=== PATIENT | female | born 1925 | race Caucasian/White ===

== ENCOUNTER 2016-08-08 19:25 | Inpatient (IN) | payer OTHER, MEDICARE ==
[~2016-08-08] VITALS: Ht 152.4 cm; Wt 49.9 kg
[~2016-08-08 19:25] MED LIST: Ascorbic Acid,Ester- PO; CALCIUM CARBONATE PO; CYANOCOBALAM1000 MCG PO; Coumadin,Jantoven PO; Cozaar PO; Feosol PO; GLUCOSAMINE PO; LASIX20 MG GT; LOTENSIN10 MG PO; Lasix PO; MELOXICAM15 MG PO; MSM PO; NORVASC5 MG PO; Oscal 500 w/Vitamin PO; PRILOSEC20 MG PO; Protonix PO; Senokot S,Pericolace PO; TYLENOL W/COD1 COMBO PO; Tylenol Regular Stre PO; VISION ESSENTIALS PO; Vicodin,Norco 5/325 PO
[2016-08-08 20:50] LABS: EOSINOPHIL (%) 0.3 % (0-5); HEMATOCRIT 30.9 % (36.0-46.0); IMMATURE GRANULOCYTE (%) 0.5 % (0.0-0.7); IMMATURE GRANULOCYTE COUNT 0.1 K/uL; INSTRUMENT ABS NEUTROPHIL CT 9.8 K/uL; LYMPHOCYTE COUNT 0.8 K/uL (1.0-2.8); MCH 28.7 PG (29.0-34.0); MCV 89.6 FL (83-99); MEAN PLAT.VOLUME 10.2 uM^3 (9.5-12.4); MONOCYTE (%) 5.5 % (3-12); MONOCYTE COUNT 0.6 K/uL (0-0.8); NEUTROPHIL (%) 86.1 % (45-76); NEUTROPHIL COUNT 9.8 K/uL (1.8-6.4); PLATELET COUNT 154 K/uL (156-360); RBC DIS.WIDTH-CV 12.8 % (11.8-14.6); RBC DIS.WIDTH-SD 41.9 % (39-53); RED BLOOD COUNT 3.45 M/uL (3.80-5.20); WHITE BLOOD COUNT 11.4 K/uL (4.1-10.2)
[2016-08-08 20:58] LABS: CHLORIDE 119 mEq/L (99-109); POTASSIUM 2.7 mEq/L (3.7-5.4); SODIUM 144 mEq/L (136-147)
[2016-08-08 20:59] LABS: GLUCOSE 85 mg/dL (70-99)
[2016-08-08 21:01] LABS: ANION GAP 7 MEQ/L (2-14)
[2016-08-08 21:03] LABS: GFR ESTIMATE (CALCULATED) > 59 mL/min/
[2016-08-08 21:04] LABS: UREA NITROGEN (BUN) 16 mg/dL (9-23)
[2016-08-09 00:42] LABS: MAGNESIUM 1.4 mg/dL (1.3-2.7)
[2016-08-09 01:17] LABS: ADD MIUA? NO; BILIRUBIN NEGATIVE; BLOOD NEGATIVE; COLOR YELLOW ((YELLOW)); GLUCOSE (STRIP) 50; KETONES NEGATIVE; LEUKOCYTES NEGATIVE; NITRITE NEGATIVE; PROTEIN (STRIP) NEGATIVE; SPECIFIC GRAVITY 1.011 (1.000-1.030); UCUL ADDED? NO; UROBILINOGEN 0.2 MG/DL (0.2-1.0)
[2016-08-09 03:06] VITALS: BP 170/93
[2016-08-09 04:42] VITALS: BP 137/74
[2016-08-09 08:28] VITALS: BP 148/81
[2016-08-09] MEDS ORDERED: LIDODERM 5% P1 PATCH TD (15:14)
[2016-08-09] MEDS ORDERED: LOSARTAN POTASS50 MG PO (15:14)
[2016-08-09] MEDS ORDERED: PROTONIX20 MG PO (15:15)
[2016-08-09 16:00] VITALS: BP 148/79
[2016-08-09 23:34] VITALS: BP 103/55
[2016-08-10] VITALS (8 sets, daily range): BP systolic 89–133; BP diastolic 45–68
[2016-08-10 05:56] LABS: HEMATOCRIT 34.8 % (36.0-46.0); MCH 29.1 PG (29.0-34.0); MCHC 31.3 G/DL (30.0-36.0); MCV 92.8 FL (83-99); PLATELET COUNT 140 K/uL (156-360); RBC DIS.WIDTH-CV 13.3 % (11.8-14.6); RBC DIS.WIDTH-SD 45.5 % (39-53); RED BLOOD COUNT 3.75 M/uL (3.80-5.20); WHITE BLOOD COUNT 11.6 K/uL (4.1-10.2)
[2016-08-10 07:01] LABS: CHLORIDE 109 mEq/L (99-109); SODIUM 140 mEq/L (136-147)
[2016-08-10 07:03] LABS: GLUCOSE 102 mg/dL (70-99)
[2016-08-10 07:05] LABS: ANION GAP 12 MEQ/L (2-14)
[2016-08-10 07:07] LABS: GFR ESTIMATE (CALCULATED) > 59 mL/min/
[2016-08-10 07:08] LABS: UREA NITROGEN (BUN) 12 mg/dL (9-23)
[2016-08-10 07:12] LABS: POTASSIUM 4.4 mEq/L (3.7-5.4)
[2016-08-10 09:00] LABS: METH RESISTANT S AUREUS PCR NEGATIVE (NEGATIVE)
[2016-08-10 09:01] LABS: PROBE CHECK PASS; SPECIMEN PROCESSING CONTROL PASS
[2016-08-11] VITALS (12 sets, daily range): BP systolic 82–165; BP diastolic 46–83
[2016-08-11 06:27] LABS: EOSINOPHIL (%) 0.2 % (0-5); HEMATOCRIT 28.8 % (36.0-46.0); IMMATURE GRANULOCYTE (%) 0.6 % (0.0-0.7); IMMATURE GRANULOCYTE COUNT 0.1 K/uL; INSTRUMENT ABS NEUTROPHIL CT 8.7 K/uL; MCH 29.4 PG (29.0-34.0); MCHC 33.3 G/DL (30.0-36.0); MEAN PLAT.VOLUME 10.5 uM^3 (9.5-12.4); MONOCYTE (%) 9.1 % (3-12); NEUTROPHIL (%) 80.5 % (45-76); NEUTROPHIL COUNT 8.7 K/uL (1.8-6.4); PLATELET COUNT 130 K/uL (156-360); RBC DIS.WIDTH-CV 13.2 % (11.8-14.6); RBC DIS.WIDTH-SD 42.8 % (39-53); RED BLOOD COUNT 3.27 M/uL (3.80-5.20); WHITE BLOOD COUNT 10.8 K/uL (4.1-10.2)
[2016-08-11 06:31] LABS: MCV 88.1 FL (83-99)
[2016-08-11 06:34] LABS: ALKALINE PHOSPHATASE 43 IU/L (3-129); ANION GAP 8 MEQ/L (2-14); CHLORIDE 109 MEQ/L (99-109); GFR ESTIMATE (CALCULATED) > 59 mL/min/; GLUCOSE 98 mg/dL (70-99); POTASSIUM 4.1 MEQ/L (3.7-5.4); SAMPLE HEMOLYSIS CHECK 0; SAMPLE ICTERIC CHECK 0; SAMPLE LIPEMIA CHECK 0; SODIUM 138 MEQ/L (136-147); TOTAL BILIRUBIN 0.7 MG/DL (0.0-1.0); UREA NITROGEN (BUN) 15 mg/dL (9-23)
[2016-08-12 04:12] VITALS: BP 148/88
[2016-08-12 05:51] LABS: EOSINOPHIL (%) 0.5 % (0-5); EOSINOPHIL COUNT 0.1 K/uL (0-0.3); HEMATOCRIT 32.4 % (36.0-46.0); IMMATURE GRANULOCYTE (%) 0.7 % (0.0-0.7); IMMATURE GRANULOCYTE COUNT 0.1 K/uL; INSTRUMENT ABS NEUTROPHIL CT 6.9 K/uL; LYMPHOCYTE COUNT 1.3 K/uL (1.0-2.8); MCH 28.8 PG (29.0-34.0); MCV 87.1 FL (83-99); MEAN PLAT.VOLUME 10.3 uM^3 (9.5-12.4); MONOCYTE (%) 8.5 % (3-12); MONOCYTE COUNT 0.8 K/uL (0-0.8); NEUTROPHIL COUNT 6.9 K/uL (1.8-6.4); PLATELET COUNT 139 K/uL (156-360); RBC DIS.WIDTH-SD 41.7 % (39-53); RED BLOOD COUNT 3.72 M/uL (3.80-5.20); WHITE BLOOD COUNT 9.1 K/uL (4.1-10.2)
[2016-08-12 06:22] LABS: ALKALINE PHOSPHATASE 45 IU/L (3-129); ANION GAP 8 MEQ/L (2-14); CHLORIDE 105 MEQ/L (99-109); GFR ESTIMATE (CALCULATED) > 59 mL/min/; GLUCOSE 93 mg/dL (70-99); POTASSIUM 4.3 MEQ/L (3.7-5.4); SAMPLE HEMOLYSIS CHECK 0; SAMPLE ICTERIC CHECK 0; SAMPLE LIPEMIA CHECK 0; SODIUM 135 MEQ/L (136-147); UREA NITROGEN (BUN) 15 mg/dL (9-23)
[2016-08-12 06:23] LABS: TOTAL BILIRUBIN 0.9 MG/DL (0.0-1.0)
[2016-08-12 08:30] VITALS: BP 170/92
[2016-08-12 12:41] VITALS: BP 143/76
[2016-08-12 15:51] VITALS: BP 114/54
[2016-08-12 19:42] VITALS: BP 135/70
[2016-08-13] VITALS: BP 173/93
[2016-08-13 04:05] VITALS: BP 136/84
[2016-08-13 06:24] LABS: EOSINOPHIL (%) 0.5 % (0-5); EOSINOPHIL COUNT 0.1 K/uL (0-0.3); HEMATOCRIT 33.4 % (36.0-46.0); IMMATURE GRANULOCYTE (%) 0.2 % (0.0-0.7); INSTRUMENT ABS NEUTROPHIL CT 7.8 K/uL; LYMPHOCYTE COUNT 1.2 K/uL (1.0-2.8); MCH 28.4 PG (29.0-34.0); MCHC 32.3 G/DL (30.0-36.0); MCV 87.9 FL (83-99); MEAN PLAT.VOLUME 10.1 uM^3 (9.5-12.4); MONOCYTE COUNT 0.8 K/uL (0-0.8); NEUTROPHIL (%) 78.9 % (45-76); NEUTROPHIL COUNT 7.8 K/uL (1.8-6.4); RBC DIS.WIDTH-CV 13.2 % (11.8-14.6); RBC DIS.WIDTH-SD 42.5 % (39-53); WHITE BLOOD COUNT 9.9 K/uL (4.1-10.2)
[2016-08-13 06:37] LABS: ALKALINE PHOSPHATASE 45 IU/L (3-129); ANION GAP 9 MEQ/L (2-14); CHLORIDE 107 MEQ/L (99-109); GFR ESTIMATE (CALCULATED) > 59 mL/min/; GLUCOSE 111 mg/dL (70-99); POTASSIUM 4.3 MEQ/L (3.7-5.4); SAMPLE HEMOLYSIS CHECK 0; SAMPLE ICTERIC CHECK 0; SAMPLE LIPEMIA CHECK 0; SODIUM 137 MEQ/L (136-147); UREA NITROGEN (BUN) 14 mg/dL (9-23)
[2016-08-13 06:46] LABS: PLATELET COUNT 182 K/uL (156-360)
[2016-08-13 07:54] VITALS: BP 151/87
[2016-08-13 09:05] LABS: HEMATOCRIT 31.1 % (36.0-46.0); MCH 28.4 PG (29.0-34.0); MCHC 32.2 G/DL (30.0-36.0); MCV 88.4 FL (83-99); MEAN PLAT.VOLUME 10.1 uM^3 (9.5-12.4); PLATELET COUNT 180 K/uL (156-360); RBC DIS.WIDTH-CV 13.3 % (11.8-14.6); RBC DIS.WIDTH-SD 43.3 % (39-53); RED BLOOD COUNT 3.52 M/uL (3.80-5.20); WHITE BLOOD COUNT 8.6 K/uL (4.1-10.2)
[2016-08-13 09:34] LABS: ALKALINE PHOSPHATASE 42 IU/L (3-129); ANION GAP 5 MEQ/L (2-14); CHLORIDE 108 MEQ/L (99-109); GFR ESTIMATE (CALCULATED) > 59 mL/min/; GLUCOSE 109 mg/dL (70-99); POTASSIUM 4.6 MEQ/L (3.7-5.4); SAMPLE HEMOLYSIS CHECK 0; SAMPLE ICTERIC CHECK 0; SAMPLE LIPEMIA CHECK 0; SODIUM 137 MEQ/L (136-147); TOTAL BILIRUBIN 0.9 MG/DL (0.0-1.0); UREA NITROGEN (BUN) 13 mg/dL (9-23)
[2016-08-13 09:38] LABS: BASE EXCESS -0.7 mEq/L (-3 to +3); BICARBONATE 23.1 mEq/L (22-26); CARBOXY HGB 2.1 % (0-5); METHEMOGLOBIN 1.1 % (0-1.5); PCO2 34 mm Hg (35-45); PO2 55 mm Hg (80-100); pH 7.44 (7.35-7.45)
[2016-08-13 09:39] LABS: DEVICE NC; O2 FLOW 1 L/MIN; SITE RB; TOTAL RESP RATE 18 resp/min
[2016-08-13 09:39] LABS: D-DIMER ELISA 2.26 mg/L FEU (< 0.57)
[2016-08-13 12:05] VITALS: BP 131/74
[2016-08-13 15:45] LABS: ADD MIUA? YES; BILIRUBIN NEGATIVE; BLOOD LARGE; COLOR YELLOW ((YELLOW)); GLUCOSE (STRIP) NEGATIVE; KETONES NEGATIVE; LEUKOCYTES LARGE; NITRITE POSITIVE; PROTEIN (STRIP) NEGATIVE; SPECIFIC GRAVITY 1.011 (1.000-1.030); UROBILINOGEN 0.2 MG/DL (0.2-1.0)
[2016-08-13 16:28] LABS: BACTERIA RARE /HPF; EPITHELIAL CELLS RARE /HPF; MUCUS TRACE /LPF; WHITE BLOOD CELLS TNTC /HPF (0-5); WHITE BLOOD CELLS CLUMP MANY /HPF (0-5)
[2016-08-13 17:01] VITALS: BP 184/93
[2016-08-13 20:15] VITALS: BP 130/91
[2016-08-14] VITALS (7 sets, daily range): BP systolic 120–169; BP diastolic 62–77
[2016-08-14 06:58] LABS: HEMATOCRIT 32.4 % (36.0-46.0); MCH 28.4 PG (29.0-34.0); MCHC 32.4 G/DL (30.0-36.0); MCV 87.6 FL (83-99); MEAN PLAT.VOLUME 10.1 uM^3 (9.5-12.4); PLATELET COUNT 214 K/uL (156-360); RBC DIS.WIDTH-CV 13.3 % (11.8-14.6); RBC DIS.WIDTH-SD 42.5 % (39-53); WHITE BLOOD COUNT 9.2 K/uL (4.1-10.2)
[2016-08-14 07:26] LABS: ALKALINE PHOSPHATASE 45 IU/L (3-129); ANION GAP 11 MEQ/L (2-14); CHLORIDE 107 MEQ/L (99-109); DIRECT BILIRUBIN 0.2 mg/dL (0.0-0.3); GFR ESTIMATE (CALCULATED) > 59 mL/min/; GLUCOSE 103 mg/dL (70-99); POTASSIUM 4.3 MEQ/L (3.7-5.4); SAMPLE HEMOLYSIS CHECK 0; SAMPLE ICTERIC CHECK 0; SAMPLE LIPEMIA CHECK 0; SODIUM 138 MEQ/L (136-147); TOTAL BILIRUBIN 0.8 MG/DL (0.0-1.0); UREA NITROGEN (BUN) 13 mg/dL (9-23)
[2016-08-15 00:15] VITALS: BP 114/74
[2016-08-15 04:28] VITALS: BP 160/88
[2016-08-15 05:15] LABS: HEMATOCRIT 30.7 % (36.0-46.0); MCH 28.7 PG (29.0-34.0); MCHC 33.2 G/DL (30.0-36.0); MCV 86.2 FL (83-99); MEAN PLAT.VOLUME 9.8 uM^3 (9.5-12.4); PLATELET COUNT 240 K/uL (156-360); RBC DIS.WIDTH-CV 13.2 % (11.8-14.6); RBC DIS.WIDTH-SD 41.9 % (39-53); RED BLOOD COUNT 3.56 M/uL (3.80-5.20); WHITE BLOOD COUNT 11.1 K/uL (4.1-10.2)
[2016-08-15 05:39] LABS: ANION GAP 10 MEQ/L (2-14); CHLORIDE 107 MEQ/L (99-109); GFR ESTIMATE (CALCULATED) > 59 mL/min/; GLUCOSE 117 mg/dL (70-99); POTASSIUM 4.2 MEQ/L (3.7-5.4); SAMPLE HEMOLYSIS CHECK 0; SAMPLE ICTERIC CHECK 0; SAMPLE LIPEMIA CHECK 0; SODIUM 138 MEQ/L (136-147); UREA NITROGEN (BUN) 14 mg/dL (9-23)
[2016-08-15 07:51] VITALS: BP 165/83
[2016-08-15] MEDS ORDERED: ELIQUIS2.5 MG PO (13:47)
[2016-08-15] MEDS ORDERED: LOPRESSOR25 MG PO (13:48)
[2016-08-15] MEDS ORDERED: LOPRESSOR100 M1 PO (13:48)
[2016-08-15] MEDS ORDERED: ENDOCET 5-3251 EACH PO ×2 (13:48)
[2016-08-15] MEDS ORDERED: SENNA LAX8.6 MG PO (13:49)
[2016-08-15] MEDS ORDERED: AMPICILLIN TRI500 MG PO (13:50)
[2016-08-15] MEDS ORDERED: MINERAL OIL 1 ML1 ML PO (13:51)
[2016-08-15 15:09] VITALS: BP 120/60
== END 2016-08-15 16:36 | DRG 536 ==
LOC: EME → TRA 19:25 → EME 19:25 → EDBD 19:25 → 3EAST 08-09 01:21 → EDOF 08-09 01:21 → 4WEST 08-09 01:21 → 3EAST 08-09 02:38 → 4WEST 08-10 07:06 → 3EAST 08-11 17:53
PROVIDERS: Emergency Medicine; Family Medicine; Nurse Practitioner Adult Health; Pediatrics; Physician Assistant
DX: S32.501A Unspecified fracture of right pubis, initial encounter for closed fracture (principal); S42.302A Unspecified fracture of shaft of humerus, left arm, initial encounter for closed fracture; I47.1 Supraventricular tachycardia; F05 Delirium due to known physiological condition; N39.0 Urinary tract infection, site not specified; I48.91 Unspecified atrial fibrillation; E88.09 Other disorders of plasma-protein metabolism, not elsewhere classified; D69.6 Thrombocytopenia, unspecified; E87.6 Hypokalemia; I10 Essential (primary) hypertension; F03.90 Unspecified dementia, unspecified severity, without behavioral disturbance, psychotic disturbance, mood disturbance, and anxiety; E83.51 Hypocalcemia; K21.9 Gastro-esophageal reflux disease without esophagitis; M19.90 Unspecified osteoarthritis, unspecified site; D64.9 Anemia, unspecified; R33.9 Retention of urine, unspecified; B95.61 Methicillin susceptible Staphylococcus aureus infection as the cause of diseases classified elsewhere; R09.02 Hypoxemia; K59.00 Constipation, unspecified; Z96.641 Presence of right artificial hip joint
CPT/HCPCS: 36600; 70450; 71010; 71275; 72192; 73030; 73560; 80048; 80053; 80069; 80076; 81003; 82040; 82803; 83735; 84132 91; 85025; 85027; 85379; 86850; 86900; 86901; 87077; 87086; 87147; 87186; 87641; 93005; 93306; 93970; 94799; 97530 GO; 97530 GP; 99281; 99285; J0153; J0610; J0696; J1200; J2060; J2270; J2405; J3360; J3480; J7030; J7050; S0028

== ENCOUNTER 2016-10-11 13:50 | Emergency (ER) | payer OTHER, MEDICARE ==
[~2016-10-11] VITALS: Ht 154.9 cm; Wt 51.7 kg
[~2016-10-11 13:50] MED LIST changes: +AMPICILLIN TRI500 MG PO; +ELIQUIS2.5 MG PO; +ENDOCET 5-3251 EACH PO; +LIDODERM 5% P1 PATCH TD; +LOPRESSOR100 M1 PO; +LOPRESSOR25 MG PO; +LOSARTAN POTASS50 MG PO; +MINERAL OIL 1 ML1 ML PO; +PROTONIX20 MG PO; +SENNA LAX8.6 MG PO
[2016-10-11] MEDS ORDERED: NEURONTIN100 MG PO (14:23)
[2016-10-11] MEDS ORDERED: BUSPAR5 MG PO (14:25)
[2016-10-11 15:14] LABS: MCH 27.5 PG (29.0-34.0); MCHC 31.1 G/DL (30.0-36.0); MCV 88.2 FL (83-99); MEAN PLAT.VOLUME 9.8 uM^3 (9.5-12.4); PLATELET COUNT 241 K/uL (156-360); RBC DIS.WIDTH-CV 15.5 % (11.8-14.6); RBC DIS.WIDTH-SD 50.4 % (39-53); RED BLOOD COUNT 4.08 M/uL (3.80-5.20); WHITE BLOOD COUNT 10.4 K/uL (4.1-10.2)
[2016-10-11 15:22] LABS: CHLORIDE 105 mEq/L (99-109); POTASSIUM 4.6 mEq/L (3.7-5.4); SODIUM 140 mEq/L (136-147)
[2016-10-11 15:24] LABS: INTER. NORMALIZED RATIO 1.1; PROTHROMBIN TIME 10.8 (9.2-11.2); PTT 29.3 (25-32)
[2016-10-11 15:25] LABS: GLUCOSE 109 mg/dL (70-99)
[2016-10-11 15:26] LABS: ANION GAP 6 MEQ/L (2-14)
[2016-10-11 15:27] LABS: TOTAL BILIRUBIN 0.3 mg/dL (0.0-1.0)
[2016-10-11 15:28] LABS: ALKALINE PHOSPHATASE 76 IU/L (3-129); GFR ESTIMATE (CALCULATED) > 59 mL/min/
[2016-10-11 15:29] LABS: UREA NITROGEN (BUN) 17 mg/dL (9-23)
[2016-10-11 16:20] LABS: ADD MIUA? YES; BILIRUBIN NEGATIVE; BLOOD NEGATIVE; COLOR YELLOW ((YELLOW)); GLUCOSE (STRIP) NEGATIVE; KETONES NEGATIVE; LEUKOCYTES MODERATE; NITRITE NEGATIVE; PROTEIN (STRIP) 100; SPECIFIC GRAVITY 1.018 (1.000-1.030); UROBILINOGEN 0.2 MG/DL (0.2-1.0)
[2016-10-11 16:30] VITALS: BP 124/86
[2016-10-11 16:56] LABS: BACTERIA RARE /HPF; EPITHELIAL CELLS RARE /HPF; MUCUS TRACE /LPF; RED BLOOD CELLS 20-30 /HPF (0-5); UNCLASSIFIED CRYSTALS 1+ /HPF; WHITE BLOOD CELLS TNTC /HPF (0-5); WHITE BLOOD CELLS CLUMP FEW /HPF (0-5)
[2016-10-11] MEDS ORDERED: BACTRIM,SEPT1 TABLET PO (17:32)
== END 2016-10-11 19:20 ==
LOC: EME 13:50
PROVIDERS: Emergency Medicine
DX: N39.0 Urinary tract infection, site not specified (principal); F03.90 Unspecified dementia, unspecified severity, without behavioral disturbance, psychotic disturbance, mood disturbance, and anxiety; W19.XXXA Unspecified fall, initial encounter; Y92.129 Unspecified place in nursing home as the place of occurrence of the external cause; I10 Essential (primary) hypertension; K21.9 Gastro-esophageal reflux disease without esophagitis; M06.9 Rheumatoid arthritis, unspecified; Z96.641 Presence of right artificial hip joint; Z87.440 Personal history of urinary (tract) infections
CPT/HCPCS: 70450; 80053; 81003; 85027; 85610; 85730; 87077; 87086; 87186; 99281; 99284; J0696

== ENCOUNTER 2016-11-05 10:09 | Emergency (ER) | payer OTHER, MEDICARE ==
[~2016-11-05] VITALS: Ht 160 cm; Wt 60.3 kg
[~2016-11-05 10:09] MED LIST changes: +BACTRIM,SEPT1 TABLET PO; +BUSPAR5 MG PO; +NEURONTIN100 MG PO
[2016-11-05 11:33] LABS: BASOPHIL COUNT 0.1 K/uL (0-0.1); EOSINOPHIL (%) 3.8 % (0-5); EOSINOPHIL COUNT 0.3 K/uL (0-0.3); HEMATOCRIT 33.9 % (36.0-46.0); IMMATURE GRANULOCYTE (%) 0.5 % (0.0-0.7); INSTRUMENT ABS NEUTROPHIL CT 3.8 K/uL; MCH 26.1 PG (29.0-34.0); MCV 84.3 FL (83-99); MEAN PLAT.VOLUME 9.6 uM^3 (9.5-12.4); MONOCYTE (%) 7.4 % (3-12); MONOCYTE COUNT 0.5 K/uL (0-0.8); NEUTROPHIL (%) 57.1 % (45-76); NEUTROPHIL COUNT 3.8 K/uL (1.8-6.4); PLATELET COUNT 326 K/uL (156-360); RBC DIS.WIDTH-CV 15.3 % (11.8-14.6); RBC DIS.WIDTH-SD 46.5 % (39-53); RED BLOOD COUNT 4.02 M/uL (3.80-5.20); WHITE BLOOD COUNT 6.6 K/uL (4.1-10.2)
[2016-11-05 11:36] LABS: CHLORIDE 103 mEq/L (99-109); POTASSIUM 4.3 mEq/L (3.7-5.4); SODIUM 136 mEq/L (136-147)
[2016-11-05 11:38] LABS: GLUCOSE 88 mg/dL (70-99)
[2016-11-05 11:39] LABS: ANION GAP 8 MEQ/L (2-14)
[2016-11-05 11:42] LABS: GFR ESTIMATE (CALCULATED) > 59 mL/min/
[2016-11-05 11:43] LABS: UREA NITROGEN (BUN) 16 mg/dL (9-23)
[2016-11-05 15:43] VITALS: BP 131/90
== END 2016-11-05 15:46 ==
LOC: EME 10:09
PROVIDERS: Emergency Medicine
DX: S09.90XA Unspecified injury of head, initial encounter (principal); F03.90 Unspecified dementia, unspecified severity, without behavioral disturbance, psychotic disturbance, mood disturbance, and anxiety; W07.XXXA Fall from chair, initial encounter; Y92.129 Unspecified place in nursing home as the place of occurrence of the external cause; M06.9 Rheumatoid arthritis, unspecified; K21.9 Gastro-esophageal reflux disease without esophagitis; I10 Essential (primary) hypertension; Z96.641 Presence of right artificial hip joint
CPT/HCPCS: 70450; 72125; 72170; 73501; 73502; 80048; 85025; 93005; 99281; 99284

== ENCOUNTER → 2016-12-07 | Outpatient (CLI) | payer OTHER, MEDICARE | LOC: NUC 10:36 | DX: M41.86 Other forms of scoliosis, lumbar region (principal); R93.7 Abnormal findings on diagnostic imaging of other parts of musculoskeletal system; Z96.641 Presence of right artificial hip joint | CPT/HCPCS: 78306; A9503 ==